=== PATIENT | male | born 1970 | race Caucasian/White ===

== ENCOUNTER 2022-09-16 09:42 | Emergency (ER) | payer BC, SELFPAY ==
[2022-09-16 09:49] VITALS: BP 130/86; PULSE 68; RESP 18; TEMP 36.3; O2SAT 100
--- NOTE | 2022-09-16 09:54 | ED.URI ---
HPI - URI/Sore Throat General Chief Complaint: Upper Respiratory Infection Stated Complaint: chest / head congestion Time Seen by Provider: 09/16/22 10:03 Source: patient and RN notes reviewed Mode of arrival: ambulatory Limitations: no limitations History of Present Illness HPI Narrative: 51-year-old male presents with concern for 3 day history of sinus congestion, ear pressure, cough, chest congestion. He denies fever, aches, chills, sweats. Reports his girlfriend has similar symptoms. Reports he has been taking a multi symptom cold medicine without much relief. MD elicited complaint: cough and nasal congestion Related Data Home Medications Medication Instructions Recorded Confirmed atorvastatin 40 mg tablet 40 mg PO DIRECTED 09/16/22 09/16/22 buspirone 5 mg tablet 5 mg PO DIRECTED 09/16/22 09/16/22 dapagliflozin 10 mg tablet 10 mg PO DIRECTED 09/16/22 09/16/22 (Farxiga) metoprolol succinate 50 mg 50 mg PO DIRECTED 09/16/22 09/16/22 tablet,extended release 24 hr sacubitril 97 mg-valsartan 103 mg 1 tablet PO DIRECTED 09/16/22 09/16/22 tablet (Entresto) spironolactone 25 mg tablet 25 mg PO DIRECTED 09/16/22 09/16/22 Allergies Allergy/AdvReac Type Severity Reaction Status Date / Time amoxicillin Allergy Rash Verified 09/16/22 10:04 erythromycin base Allergy Rash Verified 09/16/22 10:04 Penicillins Allergy Rash Verified 09/16/22 10:04 Review of Systems Review of Systems: CONSTITUTIONAL: Denies malaise, chills, sweats, or fever. EYES: Denies visual changes, redness, or discharge. ENT: Reports rhinorrhea, congestion, otalgia. Denies sinus pain and and sore throat. CARDIOVASCULAR: Denies chest pain, palpitations, or edema. RESPIRATORY: Reports cough. Denies dyspnea. GASTROINTESTINAL: Denies abdominal pain, nausea, vomiting, diarrhea SKIN: Denies rash or itching. MUSCULOSKELETAL: Denies myalgia. NEUROLOGIC: Denies headache. All systems reviewed & are unremarkable except as noted in HPI and below PMFSH Comments At time of signature, agree with nursing past medical, surgical, social and family history. There is no relevant family history pertinent to the presenting complaint Exam Narrative: GENERAL: Well-appearing, well-nourished, and in no acute distress. HEAD: Normocephalic EYES: PERRLA, conjunctivae clear ENT: Nares clear, turbinates edematous and erythematous, clear discharge. Mucous membranes moist. TM pearly coto with dull light reflex bilaterally; no tragal tenderness. Oropharynx not erythematous without lesions. Tonsils not enlarged and without exudate, no drooling, no hoarseness, no trismus, uvula midline. NECK: Supple. No lymphadenopathy CHEST: Clear to auscultation, breath sounds equal. No wheezing, rhonchi, rales, or stridor. No respiratory distress, speaks in full sentences. HEART: Regular rate and rhythm. No murmur heard. SKIN: Warm, dry, no rash. NEURO: Alert and oriented x3. PSYCH: Normal mood and affect Course Course Emergency Course: Patient is aware of diagnosis, understands and agrees to treatment plan. Anticipatory guidance given. Patient agrees to follow-up as directed and is aware of reasons to seek care at the emergency department. Portions of this record may have been created with voice recognition software Level of Care: Express Care Visit Vital Signs Vital signs: Vital Signs Temperature 97.4 F L 09/16/22 09:49 Pulse Rate 68 09/16/22 09:49 Respiratory Rate 18 09/16/22 09:49 Blood Pressure 130/86 09/16/22 09:49 Pulse Oximetry 100 09/16/22 09:49 Oxygen Delivery Room Air 09/16/22 09:49 Temperature 97.4 F L 09/16/22 09:49 Pulse Rate 68 09/16/22 09:49 Respiratory Rate 18 09/16/22 09:49 Blood Pressure 130/86 09/16/22 09:49 Pulse Oximetry 100 09/16/22 09:49 Oxygen Delivery Room Air 09/16/22 09:49 Reviewed. MDM - URI/Sore Throat MDM Narrative Medical decision making narrative: Differential diagnosis c
== END 2022-09-16 10:35 | disposition home or self-care (01) ==
PROVIDERS: Emergency Provider Nurse Practitioner
DX: J06.9 Acute upper respiratory infection, unspecified (principal); Z20.822 Contact with and (suspected) exposure to COVID-19
CPT/HCPCS: 87426; 87804; 99213; C9803; G0463